=== PATIENT | male | born 1945 | race Caucasian/White ===

== ENCOUNTER 2020-09-26 09:51 | Outpatient (CLI) | payer MEDICARE, SELFPAY ==
--- NOTE | ~2020-09-26 | CT_ITS ---
EXAMINATION: CT lung screening EXAM DATE: 09/26/2020 10:10 INDICATION: Z87.891 - Personal history of nicotine dependence. TECHNIQUE: Spiral low dose CT of the chest without contrast. Axial, coronal and sagittal images were reviewed. The dose-length product (DLP) for this examination was 265.49 mGy-cm. The exposure was t ailored according to patient size (auto mA exposure control), and iterative reconstruction (ASIR) was used as additional dose reduction technique. There is no prior study for comparison. FINDINGS: There is posterior sulcus nodule measuring 10 mm without spiculation. This is about the min imum size threshold to be evaluated by PET CT. There is pleural-based right middle lobe 5 x 7 mm nodu le, without spiculations. Mild to moderate emphysema and hyperinflation. Tracheobronchial tree is patent. There is no medias tinal, hilar or axillary lymphadenopathy. There are no pleural or pericardial effusions. There is no pneumothorax. Heart normal in size. There is mild coronary arterial calcification, arterial s clerosis. Upper abdomen is unremarkable. There is thoracic spondylosis without osteoblastic or oste olytic lesions identified. IMPRESSION: Lung-RADS category 4A, suspicious (5-15 % chance of malignancy); recommend PET/CT or foll owup LDCT in 3 months. Reviewed, dictated and finalized at location [facility]. [employer] IMPRESSION: Lung-RADS category 4A, suspicious (5-15 % chance of malignancy); re commend PET/CT or followup LDCT in 3 months.
== END 2020-09-26 09:52 | disposition home or self-care (01) ==
PROVIDERS: PCP Internal Medicine; Visit Provider Nurse Practitioner
DX: Z12.2 Encounter for screening for malignant neoplasm of respiratory organs (principal); Z87.891 Personal history of nicotine dependence; R91.8 Other nonspecific abnormal finding of lung field
CPT/HCPCS: 71271

== ENCOUNTER 2020-10-09 07:43 | Outpatient (CLI) | payer MEDICARE, SELFPAY ==
--- NOTE | ~2020-10-09 | PE_ITS ---
EXAMINATION: PET skull to mid thigh DATE: 10/09/2020 10:49 INDICATION: Solitary pulmonary nodule TECHNIQUE: Blood glucose level was 269 mg/dL. 10.448 mCi of 18-fluorodeoxyglucose (18-FDG) was admini stered i.v. Low dose computed tomography (CT) images were acquired from the base of the brain to the proximal thighs for attenuation correction and anatomic localization. Positron emission tomography (P ET) images were acquired in the same distribution beginning 64 minutes after injection. Images includ ing fused PET/CT images were reconstructed in axial, coronal, and sagittal planes. Automated exposure control technique was employed. The dose-length product was 1072.68mGy-cm. COMPARISON: Chest CT dated 09/26/2020 FINDINGS: Head/neck: There is symmetric minimal increased activity in the oral cavity, palatine and lingual tonsils, parot id glands, laryngeal muscles and ocular muscles without CT correlate, likely physiologic. There is mi ld FDG uptake throughout the nearly opacified bilateral maxillary sinuses with thickened sclerotic wa lls of the sinuses consistent with chronic sinusitis. No pathologically enlarged cervical lymphadenop athy or suspicious foci of increased FDG uptake in the visualized head or neck. Chest: Mild emphysema. No appreciable increased FDG uptake is fissure with the 1 cm right lower lobe nodule at the posterior sulcus of the smaller 6 mm pleural-based nodule at the right middle lobe. Borderline heart size with atherosclerotic coronary artery calcifications. No pericardial or pleural effusion. No pathologically enlarged or FDG avid thoracic lymphadenopathy. Abdomen/pelvis/proximal thighs: Physiologic renal accumulation and excretion of FDG activity in the kidneys, bladder and along portio ns of ureters. Normal degree and heterogenous pattern of increased uptake throughout the liver withou t radiologic correlate or dominant FDG avid lesion. Hepatic calcific a comparison can consistent with old granulomatous disease. The gallbladder, pancreas, spleen and bilateral adrenal glands are normal . Mild to moderate uptake scattered throughout the bowels without radiologic correlate, also likely p hysiologic. Moderate sigmoid diverticulosis without adjacent inflammatory change to suggest diverticu litis. Prostatomegaly. A few metallic densities at the scrotum and along the spermatic cords suggesti ng prior vasectomy. No other abnormal foci of increased FDG uptake or pathologically enlarged lymphad enopathy in the abdomen, pelvis or proximal thighs. Musculoskeletal: Diffuse mild likely physiologic synovial uptake at the bilateral shoulders along with additional like ly physiologic nonfocal mild uptake at the left deltoid muscle without radiologic correlate. Mild upp er thoracic levoscoliosis. Mild uptake at the bilateral greater trochanters consistent with trochante eddie bursitis. No suspicious lytic, blastic or FDG avid bone lesions. IMPRESSION: 1. No FDG uptake associated with a 10 mm right lower lobe nodule or pleural-based 6 mm right middle l obe nodule. While reassuring low-grade malignancy cannot be absolutely excluded and would recommend c ontinued follow-up with noncontrast chest CT in 6 months. Reviewed, dictated and finalized at location [facility]. IMPRESSION: 1. No FDG uptake associated with a 10 mm right lower lobe nodule or pleural-bas ed 6 mm right middle lobe nodule. While reassuring low-grade malignancy cannot be absolutely excluded and would recommend continued follow-up with noncontrast chest CT in 6 months.
[2020-10-09 08:02] LABS: Glucose Point of Care 169 (65-105)
== END 2020-10-09 07:44 | disposition home or self-care (01) ==
PROVIDERS: PCP Internal Medicine; Visit Provider Internal Medicine
DX: R91.1 Solitary pulmonary nodule (principal)
CPT/HCPCS: 78815; 82948; A9552

== ENCOUNTER 2023-03-25 02:39 | Day surgery (SDC) | payer MEDICARE, SELFPAY ==
[2023-03-10 15:50] VITALS: BMI 30.2
--- NOTE | 2023-03-24 14:10 | PM.HPGS ---
History of Present Illness History of Present Illness Consent: Risks, benefits, and alternatives have been discussed and questions answered. Patient agrees to proceed with procedure. Chief complaint: Other fecal abnormalities Narrative: Abe Gutiérrez is a 77 year old male Referred for colon cancer screening. A Cologuard test done a few months ago was positive Review of Systems Review of Systems: All systems reviewed & are unremarkable except as noted in HPI and below PMFSH Past Medical History Medical History Essential hypertension HLD (hyperlipidemia) Lung nodule Type 2 diabetes mellitus without complication, with long-term current use of insulin Surgical History Surgical History Status post surgical removal of malignant neoplasm of skin (~12/2020) Family History Family History Mother Family history of dementia Father Cerebral aneurysm Social History Social History Smoking packs per day: 1 Smoking cigarettes per day: 20.0 Years smoked: 50 Smoking pack-years: 50.00 Smoking status: Current every day smoker Tobacco type: cigarettes Second hand tobacco smoke exposure: Yes Alcohol intake: current Alcohol use details: occasional Substance use type: does not use Lack of Transportation: No Lack of Food: Never True Current Housing: I Have Housing Concerned About Future Housing: No Difficulty Paying Gas/Electric Bills: No Difficulty Paying for Meds: No Currently Unemployed: No Education: Associate Degree Difficulty w/ Childcare or Family Care: No Living arrangements: alone Spiritual care concerns: No Meds Home Medications and Allergies Home Medications Medication Instructions Recorded Confirmed Type [id number]-[id number] 300 mcg-K 60 1 tablet PO DAILY 08/07/19 03/10/23 History mcg-lycop 600 mcg-lutein 300 mcg tablet (Centrum Silver Men) blood-glucose meter #1 ea 01/01/20 11/23/22 Rx blood sugar diagnostic #100 ea 09/15/21 11/23/22 Rx lancets 30 gauge #100 ea 09/15/21 11/23/22 Rx pen needle, diabetic 32 gauge x #100 ea 10/14/21 11/23/22 Rx 5/32 (BD Ultra-Fine Stephanie Pen Needle) insulin detemir U-100 100 unit/mL 25 unit (0.25 mL) subcut DAILY #10 05/24/22 03/10/23 Rx subcutaneous solution (Levemir mL U-100 Insulin) lisinopril 30 mg tablet 30 mg PO DAILY 03/10/23 03/10/23 History metformin 500 mg tablet 1,000 mg PO BID 03/10/23 03/10/23 History simvastatin 20 mg tablet 20 mg PO DAILY 03/10/23 03/10/23 History Allergies Allergy/AdvReac Type Severity Reaction Status Date / Time No Known Allergies Allergy Mild Verified 03/25/23 09:28 Exam Resp: Auscultation: clear to auscultation bilaterally Cardio: Rate: regular rate Rhythm: regular rhythm GI: GI Palp: Yes Soft to palpation and No Tenderness to palpation present (GI) Assessment and Plan Assessment and plan (1) Positive colorectal cancer screening using Cologuard test: Code(s): R19.5 - Other fecal abnormalities Status: Acute Assessment and Plan: Colonoscopy with possible biopsy or polypectomy or cautery or injection of substances.
[2023-03-25 09:29] VITALS: BP 101/77; PULSE 92; RESP 20; TEMP 35.9; O2SAT 97
[2023-03-25] MEDS: LACTATED RINGERS 1,000 ML 150 ML IV CONT (09:43)
--- NOTE | 2023-03-25 10:08 | WPDANESEPPF ---
Anes - Initial Pre Proc Eval Procedure: Operation Date: 03/25/23 10:45 Proposed Procedures p Colonoscopy - Jeet Mallory MD Date/Time: 03/25/23 10:08 Surgeon: Jeet Mallory MD Pre Op Diagnosis: Other fecal abnormalities Patient Data Age: 77 Gender: M Height: 1.75 m Weight: 87.1 kg Last Vital Signs Temp 96.6 F L 03/25/23 09:29 Pulse 92 03/25/23 09:29 Resp 20 03/25/23 09:29 BP 101/77 03/25/23 09:29 Pulse Ox 97 03/25/23 09:29 O2 Del Method Room Air 03/25/23 09:29 Allergies Allergy/AdvReac Type Severity Reaction Status Date / Time No Known Allergies Allergy Mild Verified 03/25/23 09:28 Home Medications Medication Instructions Recorded Confirmed Type qxerghfy-xw-hdkoc 300 mcg-K 60 1 tablet PO DAILY 08/07/19 03/10/23 History mcg-lycop 600 mcg-lutein 300 mcg tablet (Centrum Silver Men) blood-glucose meter #1 01/01/20 11/23/22 Rx blood sugar diagnostic #100 ea 09/15/21 11/23/22 Rx lancets 30 gauge #100 ea 09/15/21 11/23/22 Rx pen needle, diabetic 32 gauge x #100 10/14/21 11/23/22 Rx 5/32 (BD Ultra-Fine Stephanie Pen Needle) insulin detemir U-100 100 unit/mL 25 unit (0.25 mL) subcut DAILY #10 05/24/22 03/10/23 Rx subcutaneous solution (Levemir mL U-100 Insulin) lisinopril 30 mg tablet 30 mg PO DAILY 03/10/23 03/10/23 History metformin 500 mg tablet 1,000 mg PO BID 03/10/23 03/10/23 History simvastatin 20 mg tablet 20 mg PO DAILY 03/10/23 03/10/23 History Patient hx anesthesia problems: none Family hx anesthesia problems: none Results Review: All pre-operative results and documents have been reviewed as part of the pre-operative evaluation. [facility] Past Medical History Medical History Essential hypertension HLD (hyperlipidemia) Lung nodule Type 2 diabetes mellitus without complication, with long-term current use of insulin Surgical History Surgical History Status post surgical removal of malignant neoplasm of skin (~12/2020) Family History Family History Mother Family history of dementia Father Cerebral aneurysm Social History Social History (Updated 11/23/22 @ 10:51 by Cristina Gordon MA) Smoking packs per day: 1 Smoking cigarettes per day: 20.0 Years smoked: 50 Smoking pack-years: 50.00 Smoking status: Current every day smoker Tobacco type: cigarettes Second hand tobacco smoke exposure: Yes Alcohol intake: current Alcohol use details: occasional Substance use type: does not use Lack of Transportation: No Lack of Food: Never True Current Housing: I Have Housing Concerned About Future Housing: No Difficulty Paying Gas/Electric Bills: No Difficulty Paying for Meds: No Currently Unemployed: No Education: Associate Degree Difficulty w/ Childcare or Family Care: No Living arrangements: alone Spiritual care concerns: No Anes - Eval Final PreProcedure Day of Procedure 03/25/23 10:08 Patient weight: normal Heart: regular rate and rhythm Lungs: clear to auscultation Airway: Mallampati scale class II Neurological: alert and oriented Last oral intake: >/= 8 hours ASA classification: III Emergent: no Anesthetic plan: proceed Anesthesia type and monitoring: general GIVS and standard monitoring Results Review: All pre-operative results and documents have been reviewed as part of the pre-operative evaluation. Informed Consent: The patient's anesthetic plan and its attendant risks and benefits were discussed with the patient/family/POA. Questions were solicited and answers provided to the satisfaction of the patient/family/POA.
[2023-03-25 10:49] VITALS: BP 97/62; PULSE 91; RESP 26; O2SAT 96
[2023-03-25 10:59] VITALS: BP 95/64; PULSE 86; RESP 24; O2SAT 95
[2023-03-25 11:19] LABS: Glucose Point of Care 156 mg/dl (65-105)
== END 2023-03-25 12:12 | disposition home or self-care (01) ==
PROVIDERS: PCP Internal Medicine; Visit Provider Internal Medicine Gastroenterology
PROC: 0DJD8ZZ Inspection of Lower Intestinal Tract, Via Natural or Artificial Opening Endoscopic (ICD-10-PCS; CPT 45378; principal; 2023-03-25 10:45)
DX: Z12.11 Encounter for screening for malignant neoplasm of colon (principal); K62.1 Rectal polyp; K57.30 Diverticulosis of large intestine without perforation or abscess without bleeding; K64.8 Other hemorrhoids; R19.5 Other fecal abnormalities; E11.9 Type 2 diabetes mellitus without complications; I10 Essential (primary) hypertension; E78.5 Hyperlipidemia, unspecified; Z79.4 Long term (current) use of insulin; Z79.84 Long term (current) use of oral hypoglycemic drugs; F17.210 Nicotine dependence, cigarettes, uncomplicated
CPT/HCPCS: 45385; 82948; 88305; J2704; J7120

== ENCOUNTER 2023-12-05 12:53 | Outpatient (CLI) | payer MEDICARE, SELFPAY ==
--- NOTE | ~2023-12-05 | CT_ITS ---
CT Scan of the Chest without Contrast: Clinical Indication: Pulmonary nodule Technique: Contiguous sections were acquired throughout the chest without intravenous contrast. Dose reduction technique was used on this scan by utilizing automated exposure control and iterative recon struction technique. The dose-length product (DLP) was 170.83 mGy-cm. COMPARISON: 09/26/2020 Findings: There is no evidence of any significant mediastinal, hilar or axillary lymphadenopathy. The mediastin al soft tissues appear normal. There is no evidence of pleural or pericardial effusion. Stable 1 cm nodule at the extreme right lung base (axial image 105). Peripheral chronic interstitial change and/or emphysematous change is mildly progressed from prior exam. Images through the upper abdomen reveal no abnormalities. Impression: Stable 1 cm nodule at the extreme right lung base. Mild interval progression of peripheral chronic interstitial change and/or emphysematous change. Reviewed, dictated and finalized at [facility]. Impression: Stable 1 cm nodule at the extreme right lung base. Mild interval progression of peripheral chronic interstitial change and/or emph ysematous change.
== END 2023-12-05 12:54 ==
LOC: GOSHIMG 12:54
PROVIDERS: PCP Internal Medicine; Visit Provider Nurse Practitioner
DX: R91.1 Solitary pulmonary nodule (principal); R91.8 Other nonspecific abnormal finding of lung field
CPT/HCPCS: 71250